=== PATIENT | female | born 1950 | race Caucasian/White ===

== ENCOUNTER 2017-08-24 09:22 | Day surgery (SDC) | payer OTHER ==
[2017-08-23 17:39] VITALS: BMI 33.0
[2017-08-24] MEDS ORDERED: PROPOFOL 20 ML ONE (12:17)
[2017-08-24] MEDS ORDERED: MIDAZOLAM HCL 2 MG/2 ML SINGLE DOSE VIAL ONE (12:17)
[2017-08-24] MEDS ORDERED: DEXAMETHASONE SOD PHOSPHATE 4 MG/1 ML VIAL ONE (12:21)
[2017-08-24] MEDS ORDERED: ceFAZolin SODIUM 1 GM VIAL ONE (12:21)
[2017-08-24] MEDS ORDERED: ceFAZolin SODIUM 1 GM VIAL IVPB ONE (12:45)
[2017-08-24] MEDS ORDERED: ePHEDrine SULFATE 50 MG/1 ML AMPULE ONE (12:54)
[2017-08-24] MEDS ORDERED: ACETAMINOPHEN 325 MG TABLET (FP) PO PRN (13:35)
--- NOTE | 2017-08-24 13:39 | HP ---
DATE OF ADMISSION: DATE OF DICTATION: 08/24/2017 Patient is a 67-year-old female with right ureteral stent causing right hydronephrosis and right renal colic. The patient does have history of nephrolithiasis. She also has history of dyslipidemia and diabetes. 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 She does have history of osteopenia, type 2 diabetes, bilateral thyroid nodules, and bilateral nephrolithiasis. She is G2, P2, both C-sections, and she had an appendectomy 15 years ago. She denies any alcohol or drug use. She denies any allergies. PHYSICAL EXAMINATION: General: Physical exam revealed a well-developed adult female. Neck: Supple, nontender. No palpable nodes were appreciated. There was no jugular venous distention. Chest: Clear to auscultation, percussion. Heart: Regular sinus rhythm. Abdomen: Soft. There is some right CVA tenderness with radiation to the right lower quadrant and right groin. Extremities: Revealed full range of motion with no cyanosis, clubbing, or edema. Neurologic: Revealed no focal signs. Motor strength upper and lower extremities was normal. Sensory exam is intact. LABORATORY: The patient does have microscopic blood in the urine, and an ultrasound in the office revealed a right hydroureteronephrosis secondary to a midureteral stone. White count is 6.3. Hemoglobin and hematocrit are 13.2/40.1. Her platelets were 383. Liver enzymes were all within normal limits. Her random glucose was 129. IMPRESSION AT PRESENT: Bilateral nephrolithiasis, right hydronephrosis, right ureteral stone, right renal colic, and microscopic hematuria. There has been no resolution for the past 2 weeks. PLAN: For a cystourethroscopy, right retrograde pyelogram, and possible right laser lithotripsy with stent placement. Once the procedure is completed, patient will undergo a stone workup as an outpatient. Jr [id number]
[2017-08-24] MEDS ORDERED: ONDANSETRON 4 MG/2 ML VIAL IVPUSH PRN (13:40)
[2017-08-24] MEDS ORDERED: oxyCODONE HCL 5 MG TABLET PO PRN (13:40)
--- NOTE | 2017-08-24 13:43 | OP ---
Operative Note - Note: Operative Date: 08/24/17 Pre-Operative Diagnosis: rt. renal stone rt. hydro. rt. renal colick Operation: cysto.rt. retro. rt. ureteroscooy and stone basketting and placement of rt. jj stent (22cm-6f) Findings: rt. hydro. rt. ureteral stone Post-Operative Diagnosis: Same as Pre-op Surgeon: Gurvinder Montilla Anesthesia: General Specimens Removed: urine, poss. gravel Estimated Blood Loss (mls): 0 Drains, Volume Out (mls): 0 Blood Volume Replaced (mls): 0 Fluid Volume Replaced (mls): 0 Operative Report Dictated: Yes
[2017-08-24] MEDS ORDERED: LACTATED RINGERS SOLUTION 1,000 ML IV SCH (13:45)
[2017-08-24 15:45] VITALS: TEMP 98.1
[2017-08-24 16:33] VITALS: BP 142/80; PULSE 76
[2017-08-24] MEDS ORDERED: CIPROFLOXACIN 250 MG TABLET (RESTRICTED TO ID) PO SCH (22:00)
== END 2017-08-24 15:20 | disposition home or self-care (01) ==
LOC: JASU-SURG 09:22
PROVIDERS: ATTEND Urology
PROC: 0TC68ZZ Extirpation of Matter from Right Ureter, Via Natural or Artificial Opening Endoscopic (ICD-10-PCS; principal; 2017-08-24 12:00)
PROC: 0T768DZ Dilation of Right Ureter with Intraluminal Device, Via Natural or Artificial Opening Endoscopic (ICD-10-PCS; 2017-08-24 12:00)
DX: N20.0 Calculus of kidney (principal)
CPT/HCPCS: 76000-TC-FY; 87086; 94760

== ENCOUNTER 2018-04-21 06:03 | Day surgery (SDC) | payer OTHER ==
[2018-04-18 10:49] VITALS: BMI 28.3
[2018-04-21] MEDS ORDERED: PROPOFOL 20 ML ONE (07:30)
[2018-04-21] MEDS ORDERED: MIDAZOLAM HCL 2 MG/2 ML SINGLE DOSE VIAL ONE (07:30)
[2018-04-21] MEDS ORDERED: DEXAMETHASONE SOD PHOSPHATE 4 MG/1 ML VIAL ONE (07:30)
[2018-04-21] MEDS ORDERED: LIDOCAINE HCL/PF 2% SDV 5ML VIAL ONE (07:35)
--- NOTE | 2018-04-21 08:00 | HP ---
Admitting History and Physical - Admission Chief Complaint: Endometrial polyp History of Present Illness: 67 yo Para 3, with endometrial polyp, is pre op for D&C Hysteroscopy. History Source: Patient Limitations to Obtaining History: No Limitations - Past Medical History ...Para: 3 - Past Surgical History Past Surgical History: Yes: - Smoking History Smoking history: Never smoked Have you smoked in the past 12 months: No - Alcohol/Substance Use Hx Alcohol Use: No Home Medications - Allergies Allergies/Adverse Reactions: Allergies Allergy/AdvReac Type Severity Reaction Status Date / Time No Known Allergies Allergy Verified 08/24/17 10:17 - Home Medications Home Medications: Ambulatory Orders Potassium Citrate [Urocit-K] 15 meq PO BID 04/21/18 Family Disease History - Family Disease History Family History: Unremarkable Review of Systems - Review of Systems Constitutional: reports: No Symptoms Eyes: reports: No Symptoms HENT: reports: No Symptoms Neck: reports: No Symptoms Cardiovascular: reports: No Symptoms Respiratory: reports: No Symptoms Gastrointestinal: reports: No Symptoms Genitourinary: reports: No Symptoms Breasts: reports: No Symptoms Reported Musculoskeletal: reports: No Symptoms Integumentary: reports: No Symptoms Neurological: reports: No Symptoms Endocrine: reports: No Symptoms Hematology/Lymphatic: reports: No Symptoms Psychiatric: reports: No Symptoms Pain Intensity: 0 Physical Examination Vital Signs: Vital Signs Temperature 97.9 F 04/21/18 06:34 Pulse Rate 66 04/21/18 06:34 Respiratory Rate 20 04/21/18 06:34 Blood Pressure 133/88 04/21/18 06:34 O2 Sat by Pulse Oximetry (%) 99 04/21/18 06:34 Constitutional: Yes: Well Nourished Eyes: Yes: Conjunctiva Clear HENT: Yes: Atraumatic Neck: Yes: Supple Cardiovascular: Yes: Regular Rate and Rhythm Respiratory: Yes: Regular Gastrointestinal: Yes: Normal Bowel Sounds Breast(s): Yes: WNL Musculoskeletal: Yes: WNL Extremities: Yes: WNL Neurological: Yes: Alert, Oriented ...Motor Strength: WNL Psychiatric: Yes: Alert, Oriented Problem List - Problems (1) Endometrial polyp Code(s): N84.0 - POLYP OF CORPUS UTERI Assessment/Plan Pre op for D&C Hysteroscopy Consent signed Anesthesia to see Patient
[2018-04-21] MEDS ORDERED: oxyCODONE HCL 5 MG TABLET PO PRN (08:09)
[2018-04-21] MEDS ORDERED: ONDANSETRON 4 MG/2 ML VIAL IVPUSH PRN (08:09)
[2018-04-21] MEDS ORDERED: LACTATED RINGERS SOLUTION 1,000 ML IV SCH (08:15)
--- NOTE | 2018-04-21 08:31 | OP ---
Operative Note - Note: Operative Date: 04/21/18 Pre-Operative Diagnosis: Endometrial polyp Operation: D&C Hsteroscopy Findings: Cervical polyp Post-Operative Diagnosis: Same as Pre-op Surgeon: Ania Valles Anesthesia: General Specimens Removed: Polyp Estimated Blood Loss (mls): 5
--- NOTE | 2018-04-21 08:45 | OP ---
DATE OF OPERATION: 04/21/2018 PREOPERATIVE DIAGNOSIS: Endometrial polyp. POSTOPERATIVE DIAGNOSIS: Endometrial polyp. PROCEDURE: Dilation and curettage, hysteroscopy. SURGEON: Ania Valles MD ANESTHESIA: General. COMPLICATIONS: None. ESTIMATED BLOOD LOSS: 5 mL. DESCRIPTION OF PROCEDURE: Patient was taken to the operating room where general anesthesia was administered. Patient was then placed in lithotomy position. She was then prepped and draped in proper sterile fashion. A weighted speculum was placed in the vagina. The anterior lip of the cervix was grasped with a single-tooth tenaculum. A large polyp was found at the cervical os. Then the 5-mm hysteroscope was gently introduced into the uterine cavity. Both ostia were visualized. There was no polyp noted in the endometrial cavity. Polyp forceps were used to excise the cervical polyp, followed by a sharp curettage of the endometrial cavity. The instruments were removed. The patient was taken out of lithotomy position. She was taken to PACU in stable condition. PATHOLOGY: Cervical polyp. Jr [id number]
[2018-04-21 09:00] VITALS: TEMP 97.6
[2018-04-21 11:24] VITALS: BP 136/74; PULSE 71
--- NOTE | 2018-04-24 16:56 | PATH ---
Surgical Pathology Report Patient Name: CARL LOWE [facility]. Rec. #: [id number] /Age/Gender: 1950 (Age: 67) / F Account: [id number] Location: [facility] SURGICAL Taken: 04/21/2018 Received: 04/21/2018 Reported: 04/24/2018 Physicians: Ania Valles M.D. Specimen(s) Received A: ENDOMETRIAL CURETTINGS B: ENDOCERVICAL POLYP Clinical History Endometrial polyps Final Diagnosis A. ENDOMETRIAL CURETTINGS, DILATION AND CURETTAGE: FRAGMENTS OF ENDOCERVICAL POLYP, RARE ENDOMETRIAL GLANDS, AND BENIGN CERVICAL SQUAMOUS MUCOSA ADMIXED WITH MUCUS. B. ENDOCERVICAL POLYP, DILATION AND CURETTAGE: FRAGMENTS OF ENDOCERVICAL POLYP. Electronically Signed Dania Gomes M.D. Gross Description A. Received in formalin labeled "endometrial curettings," is a 2.6 x 1.2 x 0.3 cm aggregate of bellamy-brown soft tissue fragments admixed with mucus. The formalin is filtered and the specimen is entirely submitted in one cassette. B. Received in formalin labeled "endocervical polyp," are 2 bellamy, polypoid portions of soft tissue measuring 1.0 x 0.8 x 0.3 cm and 1.6 x 1.5 x 0.3 cm. The specimens are submitted in toto in one cassette. 04/21/201804/21/2018
== END 2018-04-21 11:40 | disposition home or self-care (01) ==
LOC: JASU-SURG 06:03
PROVIDERS: ATTEND Obstetrics & Gynecology
PROC: 0UBC8ZX Excision of Cervix, Via Natural or Artificial Opening Endoscopic, Diagnostic (ICD-10-PCS; principal; 2018-04-21 08:00)
PROC: 0UDB8ZX Extraction of Endometrium, Via Natural or Artificial Opening Endoscopic, Diagnostic (ICD-10-PCS; 2018-04-21 08:00)
DX: N84.0 Polyp of corpus uteri (principal)
CPT/HCPCS: 88305-TC; 94760

== ENCOUNTER → 2020-08-06 | Day surgery (SDC) | payer OTHER | END | disposition home or self-care (01) | LOC: JMAMMO-SUR 11:36 | PROVIDERS: ATTEND Internal Medicine | PROC: 0H9T3ZX Drainage of Right Breast, Percutaneous Approach, Diagnostic (ICD-10-PCS; principal; 2020-08-06) | DX: D24.1 Benign neoplasm of right breast (principal) | CPT/HCPCS: 19083; 77065-TC; 87899; A4648 ==

== ENCOUNTER → 2020-08-21 | Day surgery (SDC) | payer OTHER | END | disposition home or self-care (01) | LOC: FMAMMOTONE 11:27 | PROVIDERS: ATTEND Internal Medicine | PROC: 0H9T3ZX Drainage of Right Breast, Percutaneous Approach, Diagnostic (ICD-10-PCS; principal; 2020-08-21) | DX: N63.31 Unspecified lump in axillary tail of the right breast (principal); Z53.8 Procedure and treatment not carried out for other reasons | CPT/HCPCS: 19081 ==

== ENCOUNTER 2020-10-28 04:12 | Day surgery (SDC) | payer OTHER ==
[2020-10-24 16:38] VITALS: BMI 27.8
[2020-10-28] MEDS ORDERED: LIDOCAINE HCL/PF 2% SDV 5ML VIAL ONE (14:42)
[2020-10-28] MEDS ORDERED: PROPOFOL 20 ML ONE (14:42)
[2020-10-28] MEDS ORDERED: LIDOCAINE HCL 1%, 10 MG/ML (20ML VIAL) ONE (14:42)
[2020-10-28] MEDS ORDERED: MIDAZOLAM HCL 2 MG/2 ML SINGLE DOSE VIAL ONE (14:43)
[2020-10-28] MEDS ORDERED: LIDOCAINE HCL 1%, 10 MG/ML (20ML VIAL) INF ONE ×2 (15:01)
[2020-10-28] MEDS ORDERED: KETOROLAC TROMETHAMINE 30 MG/1 ML VIAL ONE (15:06)
[2020-10-28] MEDS ORDERED: ACETAMINOPHEN 500 MG TABLET (FP) PO PRN (15:37)
[2020-10-28] MEDS ORDERED: ONDANSETRON 4 MG/2 ML VIAL IVPUSH PRN (15:37)
[2020-10-28] MEDS ORDERED: LACTATED RINGERS SOLUTION 1,000 ML IV SCH (15:45)
[2020-10-28 17:52] VITALS: BP 149/89; PULSE 64; TEMP 97.9
== END 2020-10-28 17:40 | disposition home or self-care (01) ==
LOC: JASU-SURG 04:12
PROVIDERS: ATTEND Surgery
PROC: 0HBT0ZX Excision of Right Breast, Open Approach, Diagnostic (ICD-10-PCS; principal; 2020-10-28 13:00)
DX: D05.11 Intraductal carcinoma in situ of right breast (principal); E11.9 Type 2 diabetes mellitus without complications; E66.01 Morbid (severe) obesity due to excess calories; Z79.84 Long term (current) use of oral hypoglycemic drugs
CPT/HCPCS: 19281; 76098-TC-FY; 82962; 88307-TC; 88341-TC; 88342-TC; 94760

== ENCOUNTER 2021-03-17 04:19 | Day surgery (SDC) | payer OTHER ==
[2021-03-16 13:07] VITALS: BMI 31.2
[2021-03-17] MEDS ORDERED: ACETAMINOPHEN INJECTION 100 ML IVPB ONE (10:16)
[2021-03-17] MEDS ORDERED: LIDOCAINE HCL/PF 2% SDV 5ML VIAL ONE (11:02)
[2021-03-17] MEDS ORDERED: fentaNYL CITRATE 250 MCG/5 ML VIAL ONE (11:39)
[2021-03-17] MEDS ORDERED: ceFAZolin 2 GRAM PREMIX BAG IVPB ONE (12:15)
[2021-03-17] MEDS ORDERED: ONDANSETRON 4 MG/2 ML VIAL IVPUSH PRN (16:34)
[2021-03-17 19:31] VITALS: BP 146/82; PULSE 78; TEMP 97.8
== END 2021-03-17 19:20 | disposition home or self-care (01) ==
LOC: JASU-SURG 04:19
PROVIDERS: ATTEND Surgery
PROC: 0HBT0ZZ Excision of Right Breast, Open Approach (ICD-10-PCS; principal; 2021-03-17 10:45)
PROC: 0HBV0ZZ Excision of Bilateral Breast, Open Approach (ICD-10-PCS; 2021-03-17 10:45)
DX: D05.11 Intraductal carcinoma in situ of right breast (principal); N62 Hypertrophy of breast; E11.9 Type 2 diabetes mellitus without complications; Z79.84 Long term (current) use of oral hypoglycemic drugs; E66.01 Morbid (severe) obesity due to excess calories
CPT/HCPCS: 82962; 88305-TC; 88307-TC; 94760; J0131

== ENCOUNTER 2022-05-05 12:10 | Observation (INO) | payer OTHER ==
[2022-05-05] MEDS ORDERED: MECLIZINE HCL 25 MG TABLET (FP) PO ONE (13:51)
[2022-05-05] MEDS ORDERED: MECLIZINE HCL 25 MG TABLET (FP) ONE (14:00)
[2022-05-05 14:52] LABS: BASO % 0.5 % (0-2.0); EOS % 0.1 % (0-4.5); HEMATOCRIT 39.5 % (32.4-45.2); HEMOGLOBIN 13.3 GM/dL (10.7-15.3); LYMPH % 9.9 % (8-40); MCH 30.8 pg (25.7-33.7); MCHC 33.7 g/dl (32.0-36.0); MEAN CELL VOLUME 91.3 fl (80-96); MONO % 2.9 % (3.8-10.2); NEUT % 86.6 % (42.8-82.8); PLATELET COUNT 375 10^3/uL (134-434); RBC 4.33 M/mm3 (3.60-5.2); RDW 12.9 % (11.6-15.6); WHITE BLOOD COUNT 8.4 K/mm3 (4.0-10.0)
[2022-05-05 15:13] LABS: CALCIUM 9.5 mg/dL (8.5-10.1)
[2022-05-05 15:14] LABS: BLOOD UREA NITROGEN 9.3 mg/dL (7-18)
[2022-05-05 15:17] LABS: CREATININE 0.5 mg/dL (0.55-1.3)
[2022-05-05 15:18] LABS: BILIRUBIN,TOTAL 0.4 mg/dL (0.2-1); TOT PROT 7.7 g/dl (6.4-8.2)
[2022-05-05 15:53] LABS: EPI CELLS >36 /uL (0-25.1); HYALINE CASTS 0 /uL (0-3.1); URINE APPEARANCE CLEAR; URINE BACTERIA 1894 /uL (0-1359); URINE BILIRUBIN NEGATIVE (NEGATIVE); URINE COLOR YELLOW; URINE GLUCOSE (UA) NEGATIVE (NEGATIVE); URINE KETONE NEGATIVE (NEGATIVE); URINE LEUK ESTERASE NEGATIVE (NEGATIVE); URINE NITRITE NEGATIVE (NEGATIVE); URINE PROTEIN 3+ (NEGATIVE); URINE UROBILINOGEN 0.2 mg/dL (0.2-1.0); URINE WBC 45 /uL (0-25.8)
[2022-05-05] MEDS ORDERED: METOCLOPRAMIDE HCL INJECTION 10 MG/2 ML VIAL IVPB ONE (17:13)
[2022-05-05] MEDS ORDERED: METOCLOPRAMIDE HCL INJECTION 10 MG/2 ML VIAL ONE (19:25)
[2022-05-05] MEDS ORDERED: ASPIRIN 81 MG CHEWABLE TABLETS PO ONE (19:50)
[2022-05-05] MEDS ORDERED: ASPIRIN 81 MG CHEWABLE TABLETS ONE (21:39)
[2022-05-06] MEDS ORDERED: MECLIZINE HCL 25 MG TABLET (FP) PO PRN (02:40)
[2022-05-06 07:05] LABS: HEMATOCRIT 37.4 % (32.4-45.2); HEMOGLOBIN 12.7 GM/dL (10.7-15.3); MCH 31.2 pg (25.7-33.7); MCHC 34.1 g/dl (32.0-36.0); MEAN CELL VOLUME 91.7 fl (80-96); MEAN PLT VOLUME 8.6 fl (7.5-11.1); PLATELET COUNT 382 10^3/uL (134-434); RBC 4.08 M/mm3 (3.60-5.2); RDW 13.2 % (11.6-15.6); WHITE BLOOD COUNT 7.5 K/mm3 (4.0-10.0)
[2022-05-06 07:12] LABS: INR 1.16 (0.83-1.09); PROTHROMBIN TIME (PATIENT) 13.4 SEC (9.7-13.0)
[2022-05-06 07:23] LABS: ALBUMIN 3.5 g/dl (3.4-5.0); BLOOD UREA NITROGEN 11.8 mg/dL (7-18); CALCIUM 8.9 mg/dL (8.5-10.1)
[2022-05-06 07:24] LABS: CHOLESTEROL 216 mg/dL (50-200); TRIGLYCERIDES 82 mg/dL (0-150)
[2022-05-06 07:26] LABS: CREATININE 0.5 mg/dL (0.55-1.3); LDL CHOLESTEROL (ONLY SJRH) 148 mg/dL (5-100); PHOSPHOROUS 4.3 mg/dL (2.5-4.9)
[2022-05-06 07:27] LABS: TOT PROT 6.8 g/dl (6.4-8.2)
[2022-05-06 07:28] LABS: BILIRUBIN,TOTAL 0.5 mg/dL (0.2-1); HDL CHOLESTEROL 54 mg/dL (40-60)
[2022-05-06] MEDS: INSULIN SLIDING SCALE (NOVOLOG) 1 VIAL SQ SCH ×4 (09:13→23:39)
[2022-05-06] MEDS: ENOXAPARIN NA (PORCINE) 40 MG/0.4 ML DISP.SYRIN SQ SCH (11:05)
[2022-05-06] MEDS ORDERED: ENOXAPARIN NA (PORCINE) 40 MG/0.4 ML DISP.SYRIN SQ ONE (11:57)
[2022-05-06] MEDS ORDERED: ATORVASTATIN CA 10 MG TABLET (FP) PO SCH (22:00)
[2022-05-06] MEDS ORDERED: LISINOPRIL 20 MG TABLET PO SCH (22:00)
[2022-05-06 23:35] VITALS: RESP 20
[2022-05-06 23:55] VITALS: BMI 28.8
[2022-05-07] MEDS: INSULIN SLIDING SCALE (NOVOLOG) 1 VIAL SQ SCH ×2 (06:35→11:44)
[2022-05-07 09:22] VITALS: PULSE 66
[2022-05-07] MEDS: ENOXAPARIN NA (PORCINE) 40 MG/0.4 ML DISP.SYRIN SQ SCH (10:15)
[2022-05-07 16:08] VITALS: BP 146/74; TEMP 98.1
== END 2022-05-07 16:29 | disposition home or self-care (01) ==
LOC: JER 12:10 → JERBED 17:36 → J4W 05-06 23:23
PROVIDERS: ADMIT Internal Medicine; ATTEND Internal Medicine
PROC: 3E023GC Introduction of Other Therapeutic Substance into Muscle, Percutaneous Approach (ICD-10-PCS; principal; 2022-05-05)
PROC: 3E033GC Introduction of Other Therapeutic Substance into Peripheral Vein, Percutaneous Approach (ICD-10-PCS; 2022-05-05)
DX: R07.9 Chest pain, unspecified (principal); I10 Essential (primary) hypertension; E11.9 Type 2 diabetes mellitus without complications
CPT/HCPCS: 36415; 70450-TC; 70551-TC; 71045-TC-FY; 76775-TC; 80053; 80061; 81003; 82962; 83735; 84100; 84436; 84443; 84484; 85025; 85027; 85610; 87086; 93005; 93010; 93306-TC; 93880-TC; 96372; 96374; 97116-GP; 97161-GP; 99285-25; C9803-CS; G0378; U0003; U0005

== ENCOUNTER 2023-04-03 13:45 | Emergency (ER) | payer OTHER ==
[2023-04-03 13:53] VITALS: BP 147/76; PULSE 94; RESP 18; TEMP 98.1; BMI 29.7
[2023-04-03] MEDS ORDERED: DEXAMETHASONE SOD PHOSPHATE 10 MG/1 ML VIAL IM ONE (13:59)
[2023-04-03] MEDS ORDERED: FAMOTIDINE 20 MG TABLET PO ONE (14:00)
[2023-04-03] MEDS ORDERED: DEXAMETHASONE SOD PHOSPHATE 10 MG/1 ML VIAL ONE (14:07)
[2023-04-03] MEDS ORDERED: FAMOTIDINE 20 MG TABLET ONE (14:07)
== END 2023-04-03 14:35 | disposition home or self-care (01) ==
LOC: JERFT 13:45 → JER 13:45 → JERFT 14:35
PROC: 3E023GC Introduction of Other Therapeutic Substance into Muscle, Percutaneous Approach (ICD-10-PCS; principal; 2023-04-03)
DX: R21 Rash and other nonspecific skin eruption (principal); L29.9 Pruritus, unspecified; L23.9 Allergic contact dermatitis, unspecified cause
CPT/HCPCS: 96372; 99284-25; J1100

== ENCOUNTER 2024-01-04 10:33 | Emergency (ER) | payer OTHER ==
[2024-01-04 10:42] VITALS: BP 122/62; PULSE 86; RESP 18; TEMP 97.6; BMI 33.5
[2024-01-04] MEDS ORDERED: ACETAMINOPHEN INJECTION 100 ML IVPB ONE (11:08)
[2024-01-04] MEDS: SODIUM CHLORIDE 1,000 ML IV STA (11:36)
[2024-01-04] MEDS: ACETAMINOPHEN 1000 MG/100 ML BAG IVPB ONE (11:36)
[2024-01-04 11:38] LABS: BASO % 1.2 % (0-2.0); EOS % 1.9 % (0-4.5); HEMATOCRIT 38.9 % (32.4-45.2); LYMPH % 44.3 % (8-40); MCHC 33.4 g/dl (32.0-36.0); MEAN CELL VOLUME 92.8 fl (80-96); MEAN PLT VOLUME 8.4 fl (7.5-11.1); MONO % 8.4 % (3.8-10.2); NEUT % 44.2 % (42.8-82.8); PLATELET COUNT 339 10^3/uL (134-434); RBC 4.19 M/mm3 (3.60-5.2); RDW 13.1 % (11.6-15.6); WHITE BLOOD COUNT 5.5 K/mm3 (4.0-10.0)
[2024-01-04 11:56] LABS: POTASSIUM 4.6 mmol/L (3.5-5.1)
[2024-01-04 11:58] LABS: CALCIUM 9.3 mg/dL (8.5-10.1)
[2024-01-04 11:59] LABS: ALBUMIN 3.7 g/dl (3.4-5.0); BLOOD UREA NITROGEN 29.2 mg/dL (7-18)
[2024-01-04 12:02] LABS: CREATININE 1.1 mg/dL (0.55-1.3)
[2024-01-04 12:04] LABS: BILIRUBIN,TOTAL 0.3 mg/dL (0.2-1); TOT PROT 7.6 g/dl (6.4-8.2)
== END 2024-01-04 12:56 | disposition home or self-care (01) ==
LOC: JER 10:33
PROC: 3E033NZ Introduction of Analgesics, Hypnotics, Sedatives into Peripheral Vein, Percutaneous Approach (ICD-10-PCS; principal; 2024-01-04)
PROC: 3E0337Z Introduction of Electrolytic and Water Balance Substance into Peripheral Vein, Percutaneous Approach (ICD-10-PCS; 2024-01-04)
DX: U07.1 COVID-19 (principal); M79.10 Myalgia, unspecified site; R53.1 Weakness; R63.0 Anorexia; R51.9 Headache, unspecified; R05.9 Cough, unspecified; R68.83 Chills (without fever)
CPT/HCPCS: 0241U-QW; 36415; 71046-TC-FY; 80053; 83735; 84484; 85025; 93005; 93010; 96361; 96374; 99285-25; J0131

== ENCOUNTER 2024-07-26 12:13 | Emergency (ER) | payer OTHER ==
[2024-07-26 12:27] VITALS: BMI 32.9
[2024-07-26] MEDS ORDERED: ONDANSETRON 4 MG/2 ML VIAL ONE (13:22)
[2024-07-26] MEDS ORDERED: ACETAMINOPHEN INJECTION 100 ML ONE (13:22)
[2024-07-26] MEDS ORDERED: FAMOTIDINE 20 MG/50 ML IVPB 20 MG/50 ML MG IVPB ONE (13:22)
[2024-07-26 13:27] LABS: BASO % 0.4 % (0-2.0); EOS % 0.3 % (0-4.5); HEMATOCRIT 36.8 % (32.4-45.2); HEMOGLOBIN 12.1 GM/dL (10.7-15.3); MCH 30.3 pg (25.7-33.7); MCHC 32.8 g/dl (32.0-36.0); MEAN CELL VOLUME 92.5 fl (80-96); MEAN PLT VOLUME 8.4 fl (7.5-11.1); MONO % 3.5 % (3.8-10.2); NEUT % 84.8 % (42.8-82.8); PLATELET COUNT 333 10^3/uL (134-434); RBC 3.98 M/mm3 (3.60-5.2); WHITE BLOOD COUNT 7.5 K/mm3 (4.0-10.0)
[2024-07-26] MEDS: ONDANSETRON 4 MG/2 ML VIAL IVPB ONE (13:34)
[2024-07-26] MEDS: SODIUM CHLORIDE 0.9% 500 ML INFUS.BAG IV ONE (13:34)
[2024-07-26] MEDS: ACETAMINOPHEN 1000 MG/100 ML BAG IVPB ONE (13:34)
[2024-07-26 13:35] LABS: INR 1.04 (0.83-1.09)
[2024-07-26 13:38] LABS: ACTIVATED PTT 29.2 SECONDS (25.2-36.5)
[2024-07-26 13:46] LABS: POTASSIUM 4.5 mmol/L (3.5-5.1)
[2024-07-26 13:48] LABS: BLOOD UREA NITROGEN 17.9 mg/dL (7-18); CALCIUM 9.9 mg/dL (8.5-10.1); MAGNESIUM 1.7 mg/dL (1.8-2.4)
[2024-07-26 13:52] LABS: CREATININE 0.8 mg/dL (0.55-1.3)
[2024-07-26 13:53] LABS: BILIRUBIN,TOTAL 0.4 mg/dL (0.2-1); TOT PROT 7.4 g/dl (6.4-8.2)
[2024-07-26] MEDS: FAMOTIDINE 20 MG/50 ML IVPB 20 MG/50 ML MG IVPB ONE (13:53)
[2024-07-26 14:20] VITALS: BP 133/65; PULSE 61; RESP 16; TEMP 98
[2024-07-26 14:41] LABS: HIV INTERPRETATION NEGATIVE (NEGATIVE)
== END 2024-07-26 15:53 | disposition home or self-care (01) ==
LOC: JER 12:13
PROC: 3E033GC Introduction of Other Therapeutic Substance into Peripheral Vein, Percutaneous Approach (ICD-10-PCS; principal; 2024-07-26)
PROC: 3E033NZ Introduction of Analgesics, Hypnotics, Sedatives into Peripheral Vein, Percutaneous Approach (ICD-10-PCS; 2024-07-26)
PROC: 3E033GC Introduction of Other Therapeutic Substance into Peripheral Vein, Percutaneous Approach (ICD-10-PCS; 2024-07-26)
DX: R11.2 Nausea with vomiting, unspecified (principal); R42 Dizziness and giddiness; Z20.822 Contact with and (suspected) exposure to COVID-19
CPT/HCPCS: 0241U-QW; 36415; 71045-TC-FY; 80053; 83735; 84484; 85025; 85610; 85730; 86803; 87389; 93005; 93010; 99285-25; J0131